=== PATIENT | male | born 1980 | race Caucasian/White ===

== ENCOUNTER 2018-07-24 20:10 | Emergency (ER) | payer BC ==
[~2018-07-24] VITALS: Ht 177.8 cm; Wt 65.9 kg
[2018-07-24 20:15] VITALS: TEMP 98.5
[2018-07-24] MEDS ORDERED: LEVAQUIN 5500 MG/TA1 PO (21:01)
[2018-07-24 21:18] VITALS: BP 120/72; PULSE 70
== END 2018-07-24 21:18 | disposition home or self-care (01) ==
LOC: COL.ER 20:10
DX: J18.1 Lobar pneumonia, unspecified organism (principal); Z87.891 Personal history of nicotine dependence
CPT/HCPCS: J1885; J8540